=== PATIENT | male | born 1955 | race Caucasian/White ===

== ENCOUNTER → 2017-04-21 | Outpatient (CLI) | payer OTHER ==
--- NOTE | 2017-04-21 15:05 | XR ---
Cervical spine HISTORY: Cervical sprain, slip and fall 5 views of the cervical spine No comparisons Cervical vertebral bodies show preserved height and bone mineralization. Minimal anterolisthesis grad e 1 C2-3, C3-4 and C4-5. There is multilevel spondylosis. Loss of disc height present at C5-6 and C6- 7. Prevertebral soft tissues are normal. No significant foraminal encroachment with the exception of C2-3 on the left and possibly C6-7 bilaterally. Sclerosis present in the posterior elements compatibl e with facet arthropathy. IMPRESSION: Degenerative disc disease. No acute fracture or subluxation is evident.
--- NOTE | 2017-04-21 15:10 | XR ---
EXAMINATION TYPE: XR femur LT DATE OF EXAM: 04/21/2017 CLINICAL HISTORY: Slip and fall with contusion to the left femur. TECHNIQUE: Two views of the left femur are obtained. COMPARISON: None FINDINGS: There is no acute fracture or dislocation seen in the left femur. The left hip and knee j oints appear within normal limits. Soft tissue swelling is seen over the proximal left femur with obs curation of the fat planes. Tricompartmental osteoarthrosis is seen as marginal osteophytes, joint sp lucien narrowing, and tibial sclerosis. IMPRESSION: 1. There is no acute fracture or dislocation in the left femur. 2. Tricompartmental osteoarthrosis, moderate.
--- NOTE | 2017-04-21 15:12 | XR ---
EXAMINATION TYPE: XR shoulder complete LT DATE OF EXAM: 04/21/2017 CLINICAL HISTORY: Slip and fall. Contusion to the left shoulder. TECHNIQUE: Three views of the left shoulder are obtained. COMPARISON: 11/20/2009 FINDINGS: There is no acute fracture/dislocation evident in the left shoulder. The acromioclavicula r joint spaces appear within normal limits. Previously seen degenerative changes of the inferior gle noid are less well-defined than on the prior examination but present. The visualized ribs are intact and unremarkable. IMPRESSION: There is no acute fracture or dislocation in the left shoulder.
== END | disposition home or self-care (01) ==
LOC: RADXRMAIN 14:35
PROVIDERS: ATTEND Emergency Medicine
DX: M50.30 Other cervical disc degeneration, unspecified cervical region (principal); M17.12 Unilateral primary osteoarthritis, left knee; S40.012A Contusion of left shoulder, initial encounter
CPT/HCPCS: 72050

== ENCOUNTER → 2017-05-02 | Outpatient (CLI) | payer OTHER | LOC: RADMRIMAIN 21:37 | PROVIDERS: ATTEND Emergency Medicine | DX: Z53.9 Procedure and treatment not carried out, unspecified reason (principal) ==

== ENCOUNTER 2017-06-23 15:18 | Emergency (ER) | payer BC ==
[2017-06-23 15:42] VITALS: BP 137/92; PULSE 67; RESP 17; TEMP 98.8
--- NOTE | 2017-06-23 16:11 | ED ---
Lower Extremity Injury HPI - General Chief Complaint: Extremity Injury, Lower Stated Complaint: L foot redness Time Seen by Provider: 06/23/17 15:53 Source: patient Mode of arrival: ambulatory Limitations: no limitations - History of Present Illness Initial Comments: 61-year-old male patient presented to emergency department for evaluation of pain and discoloration to the third toe on his left foot. Patient denies any known injury. States that the toe appeared normal in the shower today and when he clipped his toenails this morning. He states that he started to have pain to the toe today while at work, states when he took his shoe off to inspect his toe he noticed the discoloration and swelling. Patient says he works on his feet. He denies any redness, swelling, fever, chills, nausea, vomiting, dizziness, weakness, or any other concerns. - Related Data Allergies Allergy/AdvReac Type Severity Reaction Status Date / Time No Known Allergies Allergy Verified 06/23/17 15:35 Review of Systems ROS Statement: Those systems with pertinent positive or pertinent negative responses have been documented in the HPI. ROS Other: All systems not noted in ROS Statement are negative. Past Medical History Past Medical History: No Reported History History of Any Multi-Drug Resistant Organisms: None Reported Past Surgical History: Appendectomy, Hernia Repair, Orthopedic Surgery Additional Past Surgical History / Comment(s): left knee, left heel, right shoulder Past Psychological History: No Psychological Hx Reported Smoking Status: Never smoker Past Alcohol Use History: Occasional Past Drug Use History: None Reported General Exam Limitations: no limitations General appearance: alert, in no apparent distress, other (This is a well- developed, well-nourished adult male patient in no acute distress. Vital signs upon presentation her temperature 98.8F, pulse 67, respirations 17, blood pressure 137/92, pulse ox 96% on room air.) ENT exam: Present: normal exam, normal oropharynx, mucous membranes moist Respiratory exam: Present: normal lung sounds bilaterally. Absent: respiratory distress, wheezes, rales, rhonchi, stridor Cardiovascular Exam: Present: regular rate, normal rhythm, normal heart sounds. Absent: systolic murmur, diastolic murmur, rubs, gallop, clicks Extremities exam: Present: other (Third toe left foot exhibits some swelling and ecchymosis over the proximal nail fold. No erythema, drainage, or evidence of infection. Cap refill is less than 3 seconds. Nail bed appears pink, nail appears healthy. Pedal pulse is intact and 2+.) Neurological exam: Present: alert, oriented X3, CN II-XII intact Psychiatric exam: Present: normal affect, normal mood Skin exam: Present: warm, dry, intact, normal color. Absent: rash Course Vital Signs 06/23/17 15:35 Temperature 98.8 F Pulse Rate 67 Respiratory 17 Rate Blood Pressure 137/92 O2 Sat by Pulse 96 Oximetry Medical Decision Making - Medical Decision Making 61-year-old male patient presented for evaluation of toe pain, discoloration, and swelling. Physical exam did show what ecchymosis and mild swelling at the proximal nail fold of the third digit on the left foot. No signs or symptoms of infection were noted. Patient vital signs stable. He was sent for x-ray which showed osteoarthritic changes but no acute fracture, dislocation, or osteomyelitis. He is instructed to monitor for signs of infection. He is instructed to follow up with his primary care physician for recheck in 1-2 days. He is instructed to return here immediately for any new, worsening, or concerning symptoms. He verbalizes understanding and agrees with this plan. - Lab Data Lab Results 06/23/17 Range/Units 16:41 POC Glucose (mg/dL) 108 H (75-99) mg/dL POC Glu Primary Health Care Nurse ID Neha Barton - Radiology Data Radiology results: report reviewed, image reviewed 3 views of the third digit of the left foot show degenerative changes present at the first metatarsophalangeal joint. Alignment is maintained. No fracture or dislocation. No periostitis to suggest osteomyelitis. No radiopaque foreign body. Some mild spurring present at the distal interphalangeal joint of the third digit. Impression by Dr. Camargo shows osteoarthritic change. Correlate clinically. Disposition Clinical Impression: Toe pain, left, Bruised toe Disposition: HOME SELF-CARE Condition: Good Instructions: Contusion in Adults (ED), Arthralgia (ED) Additional Instructions: Follow-up with her primary care physician for recheck in 1-2 days. Monitor for signs or symptoms of infection including increased redness, swelling, drainage, fever, or chills. Return here immediately for any new, worsening, or concerning symptoms. Referrals: Charisma Araujo MD [Primary Care Provider] - 1-2 days Time of Disposition: 16:42
--- NOTE | 2017-06-23 16:17 | XR ---
Left toes HISTORY: Pain, bruising and swelling third digit 3 views of the third digit of the left foot submitted Comparisons: None Degenerative changes present at the first metatarsophalangeal joint. Alignment is maintained. No frac ture or dislocation. No periostitis to suggest osteomyelitis. No radiopaque foreign body. Some mild s purring present at the distal interphalangeal joint of the third digit. IMPRESSION: Osteoarthritic change. Correlate clinically.
[2017-06-23 16:45] LABS: Glucose,Whole Blood 108 mg/dL (75-99)
== END 2017-06-23 16:47 | disposition home or self-care (01) ==
LOC: EC 15:18
DX: S90.122A Contusion of left lesser toe(s) without damage to nail, initial encounter (principal); Z98.890 Other specified postprocedural states; X58.XXXA Exposure to other specified factors, initial encounter; Y92.89 Other specified places as the place of occurrence of the external cause
CPT/HCPCS: 36415; 99283